=== PATIENT | female | born 1965 | race Caucasian/White ===

== ENCOUNTER 2021-12-24 06:27 | Day surgery (SDC) | payer MEDICARE ==
[2021-12-24] MEDS ORDERED: BUPIVACAINE 0.5% VIAL IJ ONE (06:28)
[2021-12-24] MEDS ORDERED: Depo-Medrol 40 MG/ML IM ONE (06:28)
[2021-12-24] MEDS ORDERED: Hydromorphone 1 mg/ml Injection ONE (08:15)
[2021-12-24] MEDS ORDERED: DIPRIVAN 200 MG/20 ML IV ONE (08:55)
--- NOTE | 2021-12-24 10:01 | XRAY ---
Indication: Bilateral hip and bilateral greater trochanter bursa injections. Intraoperative fluoroscopy provided for 56 seconds. 4 digital spot images submitted for interpretation demonstrates needle tip projecting lateral to the left/right femur necks. Additional needle tip lateral to the left/right greater trochanters. Small amount of contrast injected for all needle tip placement. Correlate with intraoperative findings/report.
--- NOTE | 2021-12-24 10:32 | XRAY ---
56 seconds of fluoroscopy was used in surgery for bilateral hips intra-articular and greater trochanteric bursa injections.
[2021-12-24] MEDS ORDERED: Lactated Ringers 1,000 ML IV ONE (10:57)
[2021-12-24 10:58] LABS: Specific Gravity 1.025 (1.005-1.025)
[2021-12-24 11:19] LABS: Amphetamine,Urine NEGATIVE (NEGATIVE); Barbiturate,Urine NEGATIVE (NEGATIVE); Benzodiazepine,Urine NEGATIVE (NEGATIVE); CREATININE,URINE RANDOM 115.3 MG/DL; Cocaine,Urine NEGATIVE (NEGATIVE); Methadone,Urine NEGATIVE (NEGATIVE); Opiate,Urine POSITIVE (NEGATIVE); PCP,Urine NEGATIVE (NEGATIVE); THC,Urine NEGATIVE (NEGATIVE)
== END 2021-12-24 09:10 | disposition home or self-care (01) ==
LOC: SDC-PAIN 06:27
PROVIDERS: ATTEND Psychiatry & Neurology Pain Medicine
DX: M16.0 Bilateral primary osteoarthritis of hip (principal); M70.62 Trochanteric bursitis, left hip; M70.61 Trochanteric bursitis, right hip; E11.9 Type 2 diabetes mellitus without complications; Z79.899 Other long term (current) drug therapy
CPT/HCPCS: 20610; 73522; 77002; 80307; 81002; 82570; 82947; 83986; J1030; J1170; J2704; Q9966

== ENCOUNTER 2022-01-14 09:54 | Day surgery (SDC) | payer MEDICARE ==
[2022-01-14] MEDS ORDERED: Depo-Medrol 40 MG/ML IM ONE (09:55)
[2022-01-14] MEDS ORDERED: Sodium Chloride 0.9(Preservative Free) 10 ML IJ ONE (09:55)
[2022-01-14] MEDS ORDERED: Marcaine Mpf 0.5% Vial 30 Ml IJ ONE (09:55)
[2022-01-14] MEDS ORDERED: LIDOCAINE HCL 1% 50 MG/5 ML VL PF IJ ONE (09:55)
[2022-01-14] MEDS ORDERED: DIPRIVAN 200 MG/20 ML IV ONE (12:11)
[2022-01-14] MEDS ORDERED: Lactated Ringers 1,000 ML IV ONE (12:43)
--- NOTE | 2022-01-14 13:48 | XRAY ---
21 seconds of fluoroscopy was used in surgery for a thoracic ROBERT injection.
--- NOTE | 2022-01-14 13:48 | XRAY ---
10 seconds of fluoroscopy was used in surgery for a right SI joint injection.
--- NOTE | 2022-01-14 19:56 | XRAY ---
Indication: Right SI joint injection. Intraoperative fluoroscopy provided for 10 seconds. 2 digital spot image submitted for interpretation demonstrates posterior needle tip projecting over the right SI joint. Correlate with intraoperative findings/report.
--- NOTE | 2022-01-14 19:58 | XRAY ---
Indication: Thoracic ROBERT. Intraoperative fluoroscopy provided for 21 seconds. 2 digital spot image submitted for interpretation demonstrates posterior needle tip projecting posterior to the T12 segment. Small amount of contrast injected for needle tip placement. Correlate with intraoperative findings/report.
== END 2022-01-14 12:47 | disposition home or self-care (01) ==
LOC: SDC-PAIN 09:54
PROVIDERS: ATTEND Psychiatry & Neurology Pain Medicine
DX: B02.9 Zoster without complications (principal); E11.9 Type 2 diabetes mellitus without complications; Z79.899 Other long term (current) drug therapy
CPT/HCPCS: 01992; 27096; 62321; 72072; 72170; 77002; 77003; 82947; G0260; J1030; J2001; J2704; Q9966

== ENCOUNTER 2022-02-11 06:47 | Day surgery (SDC) | payer MEDICARE ==
[2022-02-11] MEDS ORDERED: Depo-Medrol 40 MG/ML IM ONE (06:48)
[2022-02-11] MEDS ORDERED: Marcaine Mpf 0.5% Vial 30 Ml IJ ONE (06:48)
[2022-02-11] MEDS ORDERED: Zofran 4 MG/2 ML VIAL ONE (08:33)
[2022-02-11] MEDS ORDERED: BENADRYL 50 MG/ML ONE (08:33)
[2022-02-11] MEDS ORDERED: DIPRIVAN 200 MG/20 ML IV ONE (08:33)
--- NOTE | 2022-02-11 10:07 | XRAY ---
Indication: Right hip and greater trochanter bursa injection. Intraoperative fluoroscopy provided for 18 seconds. 2 digital spot images submitted for interpretation demonstrates needle tip projecting lateral to the right femur neck. Second needle tip lateral to the greater trochanter. Small amount of contrast injected for both needle placement. Correlate with intraoperative findings/report.
--- NOTE | 2022-02-11 10:44 | XRAY ---
18 seconds fluoroscopy time in surgery for intra-articular and greater trochanteric injections of the right hip.
[2022-02-11] MEDS ORDERED: Lactated Ringers 1,000 ML IV ONE (12:22)
== END 2022-02-11 09:07 | disposition home or self-care (01) ==
LOC: SDC-PAIN 06:47
PROVIDERS: ATTEND Psychiatry & Neurology Pain Medicine
DX: M16.11 Unilateral primary osteoarthritis, right hip (principal); M70.61 Trochanteric bursitis, right hip; E11.9 Type 2 diabetes mellitus without complications; Z79.899 Other long term (current) drug therapy
CPT/HCPCS: 20610; 73502; 77002; 82947; J1030; J1200; J2405; J2704; Q9966

== ENCOUNTER 2022-07-29 06:53 | Day surgery (SDC) | payer MEDICARE ==
[2022-07-29] MEDS ORDERED: LIDOCAINE HCL 1% 50 MG/5 ML VL PF IJ ONE (06:54)
[2022-07-29] MEDS ORDERED: Sodium Chloride 0.9(Preservative Free) 10 ML IJ ONE (06:54)
[2022-07-29] MEDS ORDERED: Depo-Medrol 40 MG/ML IM ONE (06:54)
[2022-07-29] MEDS ORDERED: DIPRIVAN 200 MG/20 ML IV ONE (08:20)
--- NOTE | 2022-07-29 09:57 | XRAY ---
Indication: Thoracic ROBERT. Intraoperative fluoroscopy provided for 23 seconds. 2 digital spot images submitted for interpretation demonstrates posterior needle tip projecting just posterior to T11. Small amount of contrast injected for needle tip placement. Correlate with intraoperative findings/report.
--- NOTE | 2022-07-29 10:05 | XRAY ---
23 seconds of fluoroscopy was used in surgery for a thoracic ROBERT.
[2022-07-29] MEDS ORDERED: Lactated Ringers 1,000 ML IV ONE (10:35)
== END 2022-07-29 08:50 | disposition home or self-care (01) ==
LOC: SDC-PAIN 06:53
PROVIDERS: ATTEND Psychiatry & Neurology Pain Medicine
DX: M54.16 Radiculopathy, lumbar region (principal); E11.9 Type 2 diabetes mellitus without complications; Z79.899 Other long term (current) drug therapy
CPT/HCPCS: 62321; 72072; 77003; 82947; J1030; J2001; J2704; Q9966

== ENCOUNTER 2022-12-09 06:51 | Day surgery (SDC) | payer MEDICARE ==
[2022-12-09] MEDS ORDERED: XYLOCAINE 1% HCL 20 ML MDV IJ ONE (06:52)
[2022-12-09] MEDS ORDERED: Depo-Medrol 40 MG/ML IM ONE (06:52)
[2022-12-09] MEDS ORDERED: Sodium Chloride 0.9(Preservative Free) 10 ML IJ ONE (06:52)
[2022-12-09] MEDS ORDERED: DIPRIVAN 200 MG/20 ML IV ONE ×2 (08:27→08:37)
[2022-12-09] MEDS ORDERED: Hydromorphone 1 mg/ml Injection ONE (08:46)
--- NOTE | 2022-12-09 10:55 | XRAY ---
Indication: Thoracic ROBERT. Intraoperative fluoroscopy provided for 38 seconds. 2 digital spot images submitted for interpretation demonstrates posterior needle tip projecting posterior to inferior T9 segment. Small amount of contrast injected for needle tip placement. Correlate with intraoperative findings/report.
[2022-12-09] MEDS ORDERED: Lactated Ringers 1,000 ML IV ONE (11:05)
--- NOTE | 2022-12-09 13:36 | XRAY ---
38 seconds of fluoroscopy was used in surgery for a thoracic ROBERT.
== END 2022-12-09 09:12 | disposition home or self-care (01) ==
LOC: SDC-PAIN 06:51
PROVIDERS: ATTEND Psychiatry & Neurology Pain Medicine
DX: B02.22 Postherpetic trigeminal neuralgia (principal)
CPT/HCPCS: 62321; 72072; 77003; 82947; J1030; J1170; J2704; Q9966

== ENCOUNTER 2023-08-04 07:00 | Day surgery (SDC) | payer MEDICARE ==
[2023-08-04] MEDS ORDERED: Depo-Medrol 40 MG/ML IM ONE (07:01)
[2023-08-04] MEDS ORDERED: BUPIVACAINE 0.5% VIAL IJ ONE (07:01)
[2023-08-04] MEDS ORDERED: DIPRIVAN 200 MG/20 ML IV ONE (08:36)
[2023-08-04] MEDS ORDERED: Lactated Ringers 1,000 ML IV ONE (09:40)
--- NOTE | 2023-08-04 09:49 | XRAY ---
Indication: Bilateral greater trochanter bursa injection. Intraoperative fluoroscopy provided for 20 seconds. 3 digital spot images submitted for interpretation demonstrates needle tips lateral to left and right greater trochanters. Small amount of contrast injected for needle tip basement. Correlate with intraoperative findings/report.
--- NOTE | 2023-08-04 10:59 | XRAY ---
20 seconds of fluoroscopy was used in surgery for a bilateral greater trochanteric bursa injection.
== END 2023-08-04 09:08 | disposition home or self-care (01) ==
LOC: SDC-PAIN 07:00
PROVIDERS: ATTEND Psychiatry & Neurology Pain Medicine
DX: M70.62 Trochanteric bursitis, left hip (principal); M70.61 Trochanteric bursitis, right hip; E11.9 Type 2 diabetes mellitus without complications
CPT/HCPCS: 20610; 73521; 77002; 82947; J1010; J2704; Q9966

== ENCOUNTER 2023-10-20 09:55 | Day surgery (SDC) | payer MEDICARE ==
[2023-10-20] MEDS ORDERED: BUPIVACAINE 0.5% VIAL IJ ONE (09:56)
[2023-10-20] MEDS ORDERED: LIDOCAINE HCL 1% 50 MG/5 ML VL PF IJ ONE (09:56)
[2023-10-20] MEDS ORDERED: Depo-Medrol 40 MG/ML IM ONE (09:56)
[2023-10-20] MEDS ORDERED: DIPRIVAN 200 MG/20 ML IV ONE ×2 (12:35→12:44)
[2023-10-20] MEDS ORDERED: Lactated Ringers 1,000 ML IV ONE (14:04)
--- NOTE | 2023-10-20 15:14 | XRAY ---
Indication: Right 10-11 intercostal nerve block. Intraoperative fluoroscopy provided for 12 seconds. 3 digital spot images submitted for interpretation demonstrates needle tips lateral to unknown inferior right ribs. Correlate with intraoperative findings/report.
--- NOTE | 2023-10-20 16:51 | XRAY ---
12 seconds of fluoroscopy was used in surgery for a right T10-T11 intercostal nerve block.
== END 2023-10-20 13:05 | disposition home or self-care (01) ==
LOC: SDC-PAIN 09:55
PROVIDERS: ATTEND Psychiatry & Neurology Pain Medicine
DX: G58.0 Intercostal neuropathy (principal); M79.18 Myalgia, other site; E11.9 Type 2 diabetes mellitus without complications
CPT/HCPCS: 20553; 64420; 64421; 71100; 77002; 82947; J2001; J2704